=== PATIENT | female | born 1955 | race American Indian/Alaskan Native ===

== ENCOUNTER 2017-06-12 06:30 | Day surgery (SDC) | payer MEDICARE ==
[2016-09-29 23:12] VITALS: BMI 28.3
[2017-06-12] MEDS ORDERED: Simethicone 40 mg/0.6 ml Liquid (30 ml) ONE (07:25)
[2017-06-12 07:35] VITALS: O2SAT 100
[2017-06-12] MEDS ORDERED: Propofol 10 mg/ml Inj (20 ML) ONE (07:58)
[2017-06-12] MEDS ORDERED: Lidocaine Hydrochloride 5 ML INJ ONE (07:59)
--- NOTE | 2017-06-12 08:01 | CP.SDSHP ---
Same Day Surgery H & P - History Proposed Procedure: Colonoscopy Pre-Op Diagnosis: H/o colon polyps - Previous Medical/Surgical History Comments: MS - Allergies Allergies: Allergies No Known Allergies Allergy (Verified 06/12/17 07:07) - Physical Exam Vital Signs: Vital Signs 06/12/17 07:08 Temperature 97 F L Pulse Rate 59 L Respiratory 19 Rate Blood Pressure 138/77 O2 Sat by Pulse 100 Oximetry Mental Status: Alert & Oriented x3 Neuro: WNL Heart: WNL Lungs: WNL GI: WNL - {Optional Preform as Required} Abdomen: WNL - Impression Impression: H/o colon polyps Pt. Evaluated Today:Candidate for Anesthesia & Procedure: Yes - Date & Time Date: 06/12/17 Time: 08:01 Short Stay Discharge - Short Stay Discharge Admitting Diagnosis/Reason for Visit: HISTORY OF COLON POLYPS Disposition: HOME/ ROUTINE Referrals: Elisha Bass MD [Primary Care Provider] -
[2017-06-12] MEDS ORDERED: Lactated Ringer's 1,000 ML IV ONE (08:05)
[2017-06-12 08:29] VITALS: TEMP 98.7
[2017-06-12 08:52] VITALS: RESP 14
[2017-06-12 09:02] VITALS: BP 139/78; PULSE 55
== END 2017-06-12 10:10 | disposition home or self-care (01) ==
LOC: C.ENDO 06:30
PROVIDERS: ATTEND Internal Medicine
DX: Z86.010 Personal history of colon polyps (principal); K64.8 Other hemorrhoids; Z87.19 Personal history of other diseases of the digestive system; E11.9 Type 2 diabetes mellitus without complications; E78.5 Hyperlipidemia, unspecified; I10 Essential (primary) hypertension; G35 Multiple sclerosis
CPT/HCPCS: 82948; G0105; J2704; J7120